=== PATIENT | male | born 1985 | race Caucasian/White ===

== ENCOUNTER → 2025-02-16 | Outpatient (CLI) | payer OTHER ==
[2025-02-16 20:25] LABS: Thyroid Stimulating Hormone 0.189 uIU/mL (0.360-4.800)
[2025-02-17 11:04] LABS: Free Thyroxine 1.04 ng/dL (0.70-1.60)
[2025-02-17 11:06] LABS: Triiodothyronine, Free 3.4 pg/mL (2.18-3.98)
== END | disposition home or self-care (01) ==
LOC: LAB SHORT 18:48 → LAB 18:48
PROVIDERS: Nurse Practitioner Family
DX: Z00.00 Encounter for general adult medical examination without abnormal findings (principal); R94.6 Abnormal results of thyroid function studies
CPT/HCPCS: 84439; 84443; 84481